=== PATIENT | female | born 2000 | race African-American/Black ===

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

== ENCOUNTER 2024-08-21 15:18 | Day surgery (SDC) | payer OTHER ==
[2024-08-21] MEDS: IRON SUCROSE INJECTION 200 MG in SODIUM CHLORIDE 100 ML IVPB ONE (15:46)
[2024-08-21 17:59] VITALS: BP 122/71; PULSE 72; RESP 17; TEMP 97.9
== END 2024-08-21 16:45 | disposition home or self-care (01) ==
LOC: FINFUSION 15:18 → FASU 15:18 → FM/S 15:20 → FASU 15:20 → FINFUSION 16:45
PROVIDERS: ATTEND Obstetrics & Gynecology
PROC: 3E033GC Introduction of Other Therapeutic Substance into Peripheral Vein, Percutaneous Approach (ICD-10-PCS; principal; 2024-08-21)
DX: O99.013 Anemia complicating pregnancy, third trimester (principal)
CPT/HCPCS: 96365; J1756

== ENCOUNTER 2024-08-29 19:20 | Inpatient (IN) | payer OTHER ==
[2024-08-29 20:06] LABS: HEMATOCRIT 29.1 % (34.1-44.9); HEMOGLOBIN 10.2 g/dL (11.2-15.7); MCHC 35.1 g/dl (32.2-35.5); MEAN CELL VOLUME 77.4 fl (79.4-94.8); MEAN PLT VOLUME 10.4 fl (9.4-12.3); PLATELET COUNT 297 x10^3/uL (182-369); RDW 13.6 % (12.1-16.5)
[2024-08-29 20:15] LABS: INR 1.06 (0.83-1.09); PROTHROMBIN TIME (PATIENT) 11.5 SEC (9.7-13.0)
[2024-08-29] MEDS: ELECTROLYTE-148 SOLN 1,000 ML IV SCH (20:15)
[2024-08-29 20:17] LABS: ACTIVATED PTT 28.4 SECONDS (25.2-36.5)
[2024-08-29 20:44] LABS: POTASSIUM 3.8 mmol/L (3.5-5.1)
[2024-08-29 20:45] LABS: CALCIUM 9.4 mg/dL (8.5-10.1)
[2024-08-29 20:47] VITALS: BMI 30.4
[2024-08-29 20:49] LABS: CREATININE 0.6 mg/dL (0.55-1.3)
[2024-08-29 21:28] LABS: HIV INTERPRETATION NEGATIVE (NEGATIVE)
[2024-08-29] MEDS ORDERED: OXYTOCIN 30 UNITS in 0.9% NS 30 UNIT/500 ML INFUS.BAG IVPB ONE (21:45)
[2024-08-29] MEDS: ELECTROLYTE-148 SOLN 500 ML IV ONE (22:15)
[2024-08-29] MEDS: OXYTOCIN 30 UNITS in 0.9% NS 30 UNIT/500 ML INFUS.BAG IVPB SCH (23:15)
[2024-08-30] MEDS: DINOPROSTONE 10 MG VAGINAL SUPPOSITORY VG ONE (01:55)
[2024-08-30] MEDS ORDERED: FENTANYL/BUPIVACAINE/NS/PF - PCEA - 50 ML DISP.SYRIN EP ONE ×2 (11:12→14:42)
[2024-08-30] MEDS ORDERED: FENTANYL CITRATE/PF 50 MCG/ML VIAL ONE ×2 (11:20→15:51)
[2024-08-30] MEDS: FENTANYL/BUPIVACAINE/NS/PF - PCEA - 50 ML DISP.SYRIN EP SCH (11:40)
[2024-08-30] MEDS ORDERED: NALOXONE HCL 0.4 MG/ML VIAL IVPUSH PRN (11:57)
[2024-08-30] MEDS ORDERED: LIDOCAINE HCL/PF 2% SDV 5ML VIAL ONE (12:15)
[2024-08-30] MEDS ORDERED: NIFEdipine E.R. 30 MG TABLET PO ONE (13:21)
[2024-08-30] MEDS: NIFEdipine E.R. 30 MG TABLET PO ONE (13:22)
[2024-08-30] MEDS ORDERED: BUPIVACAINE HCL/PF 0.25% (2.5MG/ML) 10 ML VIAL ONE (15:51)
[2024-08-30] MEDS ORDERED: OXYTOCIN 20 UNITS in 0.9% NS 20 UNIT/1,000 ML INFUS.BAG IV ONE (16:44)
[2024-08-30] MEDS: CARBOPROST TROMETHAMINE 250 MCG/ML AMPUL IM ONE (17:35)
[2024-08-30] MEDS ORDERED: hydrALAZINE HCL 20 MG/ML VIAL ONE (17:49)
[2024-08-30] MEDS: hydrALAZINE HCL 20 MG/ML VIAL IVPUSH ONE ×2 (17:52→18:03)
[2024-08-30] MEDS ORDERED: ONDANSETRON 4 MG/2 ML VIAL ONE (17:55)
[2024-08-30] MEDS: ONDANSETRON 4 MG/2 ML VIAL IVPB ONE (18:00)
[2024-08-30] MEDS: OXYTOCIN 20 UNITS in 0.9% NS 20 UNIT/1,000 ML INFUS.BAG IV SCH (18:00)
[2024-08-30] MEDS ORDERED: LABETALOL HCL 20 MG/4 ML VIAL ONE (18:09)
[2024-08-30] MEDS: LABETALOL HCL 20 MG/4 ML VIAL IVPUSH ONE (18:16)
[2024-08-30] MEDS ORDERED: WITCH HAZEL 50% (TUCKS) 40 PAD/JAR PAD TP PRN (18:44)
[2024-08-30] MEDS ORDERED: ACETAMINOPHEN 325 MG TABLET (FP) PO PRN (18:44)
[2024-08-30] MEDS ORDERED: BISACODYL 10 MG SUPP.RECT RC PRN (18:44)
[2024-08-30] MEDS ORDERED: BENZOCAINE 20% 57 GM BOTTLE TP PRN (18:44)
[2024-08-30] MEDS ORDERED: BENZOCAINE 28 GM HEMORRHOIDAL OINTMENT TP PRN (18:44)
[2024-08-30] MEDS ORDERED: oxyCODONE HCL 5 MG TABLET PO PRN (18:44)
[2024-08-30] MEDS: MAGNESIUM 4GM/H20 - 4 GM/100 ML IVPB IVPB SCH (18:51)
[2024-08-30] MEDS: MAGNESIUM SULFATE 20GM/500ML - 20 GM/500 ML INFUS.BAG IVPB SCH (19:25)
[2024-08-30 23:27] LABS: HEMATOCRIT 27.6 % (34.1-44.9); HEMOGLOBIN 9.5 g/dL (11.2-15.7); MCHC 34.4 g/dl (32.2-35.5); MEAN CELL VOLUME 78.2 fl (79.4-94.8); MEAN PLT VOLUME 10.4 fl (9.4-12.3); PLATELET COUNT 263 x10^3/uL (182-369); RDW 13.7 % (12.1-16.5)
[2024-08-31] MEDS ORDERED: MAGNESIUM SULFATE 20GM/500ML - 20 GM/500 ML INFUS.BAG ONE (04:25)
[2024-08-31 07:03] LABS: ABSOLUTE IMMATURE GRANULOCYTES 0.67 x10^3/uL (0.0-0.031); BASOPHILS # 0.06 x10^3/uL (0.01-0.08); EOSINOPHIL % 0.9 % (0.7-5.8); EOSINOPHILS # 0.25 x10^3/uL (0.04-0.36); HEMOGLOBIN 8.5 g/dL (11.2-15.7); MCHC 35.4 g/dl (32.2-35.5); MEAN CELL VOLUME 76.9 fl (79.4-94.8); MEAN PLT VOLUME 10.8 fl (9.4-12.3); MONOCYTE # 2.63 x10^3/uL (0.24-0.86); MONOCYTE % 9.4 % (4.7-12.5); PLATELET COUNT 252 x10^3/uL (182-369); RDW 13.4 % (12.1-16.5)
[2024-08-31] MEDS ORDERED: IBUPROFEN 600 MG TABLET (FP) PO ONE (07:40)
[2024-08-31] MEDS: IBUPROFEN 600 MG TABLET (FP) PO PRN (07:50)
[2024-08-31] MEDS ORDERED: NIFEdipine E.R. 30 MG TABLET PO ONE (08:50)
[2024-08-31] MEDS: NIFEdipine E.R. 30 MG TABLET PO SCH (08:52)
[2024-08-31] MEDS: PRENATAL VITAMINS W/ FOLIC ACID TABLET (FP) PO SCH (09:29)
[2024-08-31 15:56] LABS: HEMATOCRIT 25.1 % (34.1-44.9); HEMOGLOBIN 8.9 g/dL (11.2-15.7); MCHC 35.5 g/dl (32.2-35.5); MEAN CELL VOLUME 77.5 fl (79.4-94.8); MEAN PLT VOLUME 10.5 fl (9.4-12.3); PLATELET COUNT 273 x10^3/uL (182-369); RDW 13.6 % (12.1-16.5)
[2024-08-31 16:17] LABS: CALCIUM 8.9 mg/dL (8.5-10.1)
[2024-08-31 16:18] LABS: ALBUMIN 2.7 g/dl (3.4-5.0); MAGNESIUM 2.3 mg/dL (1.8-2.4)
[2024-08-31 16:22] LABS: BILIRUBIN,TOTAL 0.3 mg/dL (0.2-1); CREATININE 0.6 mg/dL (0.55-1.3); TOT PROT 6.3 g/dl (6.4-8.2)
[2024-08-31] MEDS ORDERED: SENNOSIDES/DOCUSATE COMBO (SENNA PLUS) TABLET (UD) PO PRN (22:00)
[2024-09-01 10:13] VITALS: BP 124/72; PULSE 93; RESP 16; TEMP 98.5
[2024-09-01] MEDS: FLU VACCINE (FLULAVAL) PF 45 MCG/0.5 ML SYRINGE 2024-2025 IM ONE (11:14)
[2024-09-01] MEDS: DIPHTH,PERTUSS(ACELL),TET 0.5 ML DISP.SYRIN IM ONE (11:18)
[2024-09-01 13:42] LABS: ABSOLUTE IMMATURE GRANULOCYTES 0.25 x10^3/uL (0.0-0.031); BASOPHILS # 0.04 x10^3/uL (0.01-0.08); EOSINOPHIL % 1.9 % (0.7-5.8); EOSINOPHILS # 0.35 x10^3/uL (0.04-0.36); HEMATOCRIT 22.7 % (34.1-44.9); HEMOGLOBIN 8.1 g/dL (11.2-15.7); MCHC 35.7 g/dl (32.2-35.5); MEAN CELL VOLUME 79.9 fl (79.4-94.8); MEAN PLT VOLUME 11.2 fl (9.4-12.3); MONOCYTE # 1.26 x10^3/uL (0.24-0.86); MONOCYTE % 6.8 % (4.7-12.5); PLATELET COUNT 242 x10^3/uL (182-369); RDW 13.8 % (12.1-16.5)
== END 2024-09-01 15:30 | disposition home or self-care (01) | DRG 560 ==
LOC: JLDR 19:20 → J3W 08-31 09:00
PROVIDERS: ADMIT Obstetrics & Gynecology; ATTEND Obstetrics & Gynecology
PROC: 0W8NXZZ Division of Female Perineum, External Approach (ICD-10-PCS; principal; 2024-08-30)
PROC: 10E0XZZ Delivery of Products of Conception, External Approach (ICD-10-PCS; 2024-08-30)
DX: O10.92 Unspecified pre-existing hypertension complicating childbirth (principal); O99.02 Anemia complicating childbirth; D64.9 Anemia, unspecified; Z3A.37 37 weeks gestation of pregnancy; Z37.0 Single live birth
CPT/HCPCS: 36415; 59409; 80048; 80053; 83735; 85025; 85610; 85730; 86780; 86850; 86900; 86901; 87389; 90656; 90715; G0008